=== PATIENT | female | born 1995 | race American Indian/Alaskan Native ===

== ENCOUNTER 2020-09-26 11:42 | Emergency (ER) | payer MEDICAID ==
[2020-09-26 11:50] VITALS: BP 115/67
[2020-09-26] MEDS ORDERED: HYDROcodone/ACETAMINOPHEN 5-325 MG TAB PO ONE (14:41)
--- NOTE | 2020-09-26 14:43 | Emergency Department Report ---
Abscess Boil HPI - HPI Chief Complaint: Skin/Abscess/Foreign Body Stated Complaint: ABSCESS Time Seen by Provider: 09/26/20 13:39 Duration: 2 Days Location: Other (Left labia majora) Severity: Moderate History: Yes Previous History, No Fever, No Pain, No Purulent Drainage, No Numbness, No Foreign Body, No Insect Bite HPI: The patient was evaluated in the emergency department for symptoms described in the history of present illness. He/she was evaluated in the context of the global COVID-19 pandemic, which necessitated consideration that the patient might be at risk for infection with the virus that causes COVID-19. Institutional protocols and algorithms that pertain to the evaluation of patients at risk for COVID-19 are in a state of rapid change based on information released by regulatory bodies including the CDC and federal and state organizations. These policies and algorithms were followed during the patient's care in the emergency department. Please note that these policies, procedures and recommendations changed on a rapid basis. 25-year-old - [place] female presents to the emergency room complaining of abscess on her left labia. Patient states that this is a second time she has had 1 in the last week. She had one on the right labia. Patient does shave. She denies any fever chills no nausea no vomiting. Home Medications: Previous Rx's Medication Instructions Recorded Last Taken Type Ibuprofen [Motrin 600 MG tab] 600 mg PO Q8H PRN #21 tablet 09/26/20 Unknown Rx cephALEXin [Keflex] 500 mg PO Q12HR 7 Days #14 cap 09/26/20 Unknown Rx ED Review of Systems ROS: Stated complaint: ABSCESS Other details as noted in HPI Comment: All other systems reviewed and negative ED Past Medical Hx - Past Medical History Previous Medical History?: No - Surgical History Past Surgical History?: No - Social History Smoking Status: Never Smoker Substance Use Type: None - Medications Home Medications: Home Medications Medication Instructions Recorded Confirmed Last Taken Type Ibuprofen [Motrin 600 MG tab] 600 mg PO Q8H PRN #21 tablet 09/26/20 Unknown Rx cephALEXin [Keflex] 500 mg PO Q12HR 7 Days #14 cap 09/26/20 Unknown Rx ED Abscess Boil Physical Exam - Exam General: Vital signs noted. No distress. Alert and acting appropriately. Size: 2 cm Exam: Yes Tenderness, Yes Fluctuance, Yes Surrounding Cellulites/Erythema, Yes Normal Neurologic Exam, Yes Normal Circulation, No Lymphangitis, No Crepitation, No Heart Murmur ED Course Vital Signs 09/26/20 11:48 Temperature 98 F Pulse Rate 62 Respiratory 16 Rate Blood Pressure 115/67 O2 Sat by Pulse 98 Oximetry Critical care attestation.: If time is entered above; I have spent that time in minutes in the direct care of this critically ill patient, excluding procedure time. ED Medical Decision Making - Medical Decision Making 25-year-old -[place] female presents to the emergency room complaining of abscess on her left labia. Patient states that this is a second time she has had 1 in the last week. She had one on the right labia. Patient does shave. She denies any fever chills no nausea no vomiting. Abscess labia majora left side. Incision and drain. Patient was placed on antibiotics pain medication and follow-up with her primary care provider. ED Disposition Clinical Impression: Abscess of labia majora Disposition: TO HOME OR SELFCARE Is pt being admited?: No Does the pt Need Aspirin: No Condition: Stable Instructions: Skin Abscess, [id number] Additional Instructions: Complete antibiotics take pain medication as needed. Prescriptions: cephALEXin [Keflex] 500 mg PO Q12HR 7 Days #14 cap Ibuprofen [Motrin 600 MG tab] 600 mg PO Q8H PRN #21 tablet PRN Reason: Pain Referrals: PRIMARY CARE, [Primary Care Provider] - 3-5 Days [facility] [Provider Group] - 3-5 Days Forms: Work/School Release Form(ED)
[2020-09-26] MEDS ORDERED: LIDOCAINE-MPF (1%) 10 MG/1 ML VIAL 5 ML ONE (14:45)
[2020-09-26] MEDS: LIDOCAINE-MPF (1%) 10 MG/1 ML VIAL 5 ML INFILTRATI ONE ×2 (14:57→14:58)
== END 2020-09-26 15:14 | disposition home or self-care (01) ==
LOC: ED 11:42
DX: N76.4 Abscess of vulva (principal); Z79.899 Other long term (current) drug therapy
CPT/HCPCS: 99282

== ENCOUNTER 2021-01-01 11:45 | Emergency (ER) | payer MEDICAID ==
[2021-01-01 12:10] VITALS: BP 112/50
--- NOTE | 2021-01-01 12:12 | Emergency Department Report ---
ED Abdominal Pain HPI - General Chief Complaint: Abdominal Pain Stated Complaint: ABD PAIN Time Seen by Provider: 01/01/21 12:01 Source: patient Mode of arrival: Ambulatory Limitations: No Limitations - History of Present Illness Initial Comments: Patient is a 25-year-old female presents emergency room complaints of left upper quadrant abdominal pain for 2 months. She states that she saw her primary care doctor and was diagnosed with hemorrhoids but did not take any of the medication. She has not been referred to a GI doctor. She denies any nausea or vomiting. She states that she intermittently has diarrhea. She states occasionally when she wipes she notices blood on the toilet paper, no hematochezia, melena, hematemesis. She denies any fever, urinary symptoms, abnormal vaginal discharge. No past medical history. No allergies to medica tions. - Related Data Previous Rx's Medication Instructions Recorded Last Taken Type Ibuprofen [Motrin 600 MG tab] 600 mg PO Q8H PRN #21 tablet 09/26/20 Unknown Rx cephALEXin [Keflex] 500 mg PO Q12HR 7 Days #14 cap 09/26/20 Unknown Rx Famotidine [Pepcid] 40 mg PO QHS #30 tablet 01/01/21 Unknown Rx Sucralfate [Carafate] 1 gm PO ACHS 7 Days #21 tablet 01/01/21 Unknown Rx Allergies Allergy/AdvReac Type Severity Reaction Status Date / Time No Known Allergies Allergy Unverified 09/26/20 14:51 ED Review of Systems ROS: Stated complaint: ABD PAIN Other details as noted in HPI Comment: All other systems reviewed and negative ED Past Medical Hx - Past Medical History Previous Medical History?: No - Surgical History Past Surgical History?: No - Social History Smoking Status: Never Smoker Substance Use Type: None - Medications Home Medications: Home Medications Medication Instructions Recorded Confirmed Last Taken Type Ibuprofen [Motrin 600 MG tab] 600 mg PO Q8H PRN #21 tablet 09/26/20 Unknown Rx cephALEXin [Keflex] 500 mg PO Q12HR 7 Days #14 cap 09/26/20 Unknown Rx Famotidine [Pepcid] 40 mg PO QHS #30 tablet 01/01/21 Unknown Rx Sucralfate [Carafate] 1 gm PO ACHS 7 Days #21 tablet 01/01/21 Unknown Rx ED Physical Exam - General Limitations: No Limitations General appearance: alert, in no apparent distress - Head Head exam: Present: atraumatic, normocephalic - Eye Eye exam: Present: normal appearance - ENT ENT exam: Present: mucous membranes moist - Respiratory Respiratory exam: Present: normal lung sounds bilaterally. Absent: respiratory distress, wheezes, rales, rhonchi, stridor, chest wall tenderness, accessory muscle use, decreased breath sounds, prolonged expiratory - Cardiovascular Cardiovascular Exam: Present: regular rate, normal rhythm, normal heart sounds. Absent: systolic murmur, diastolic murmur, rubs, gallop - GI/Abdominal GI/Abdominal exam: Present: soft, tenderness (mild LUQ), normal bowel sounds. Absent: distended, guarding, rebound, rigid - Neurological Exam Neurological exam: Present: alert, oriented X3 - Psychiatric Psychiatric exam: Present: normal affect, normal mood - Skin Skin exam: Present: warm, dry, intact ED Course Vital Signs 01/01/21 11:56 Temperature 98.0 F Pulse Rate 54 L Respiratory 16 Rate Blood Pressure 112/50 O2 Sat by Pulse 100 Oximetry ED Medical Decision Making - Lab Data Result diagrams: 01/01/21 12:08 01/01/21 12:08 - Medical Decision Making Patient is a 25-year-old female presents emergency room complaints of left upper quadrant abdominal pain for 2 months. She states that she saw her primary care doctor and was diagnosed with hemorrhoids but did not take any of the medication. She has not been referred to a GI doctor. She denies any nausea or vomiting. She states that she intermittently has diarrhea. She states occ asionally when she wipes she notices blood on the toilet paper, no hematochezia, melena, hematemesis. She denies any fever, urinary symptoms, abnormal vaginal discharge. No past medical history. No allergies to medications. Vitals are stable. On exam patient has mild left upper quadrant tenderness palpation, no guarding, no rebound, no rigidity, normal bowel sounds, no peritoneal signs. Labs with mild hypokalemia 3.3, repleted with K-Dur, otherwise labs are normal. UA within normal limits. Urine is negative. Symptoms likely related to GERD versus PUD versus gastritis. Do not suspect acute emergent intra- abdominal pathology at this time. Patient given prescription for Carafate and Pepcid. Patient will be referred to GI. Advised patient Please take medication as prescribed. Increase your water intake. Please follow the diet for GERD/gastritis. Follow-up with a GI doctor. Follow-up with your primary care doctor. Return to emergency room for any worsening symptoms. Critical care attestation.: If time is entered above; I have spent that time in minutes in the direct care of this critically ill patient, excluding procedure time. ED Disposition Clinical Impression: Hypokalemia Abdominal pain Qualifiers: Abdominal location: left upper quadrant Qualified Code(s): R10.12 - Left upper quadrant pain Disposition: DC- TO HOME OR SELFCARE Is pt being admited?: No Does the pt Need Aspirin: No Condition: Stable Instructions: Gastritis, Adult, [id number], Food Choices for Gastroesophageal Reflux Disease, Adult, Abdominal Pain (ED) Additional Instructions: Please take medication as prescribed. Increase your water intake. Please follow the diet for GERD/gastritis. Follow-up with a GI doctor. Follow-up with your primary care doctor. Return to emergency room for any worsening symptoms. Prescriptions: Famotidine [Pepcid] 40 mg PO QHS #30 tablet Sucralfate [Carafate] 1 gm PO ACHS 7 Days #21 tablet Referrals: [facility] [Provider Group] - 2-3 Days your, primary care doctor [Other] - 2-3 Days Forms: Work/School Release Form(ED) Time of Disposition: 13:42 Print Language: PRYDEINIG
[2021-01-01 12:34] LABS: Bilirubin,Urine NEG (Negative); Blood,Urine NEG (Negative); Color,Urine Yellow (Yellow); Mucus,Urine FEW /HPF; Protein,Urine <15 mg/dL mg/dL (Negative); Urobilinogen,Urine < 2.0 mg/dL (<2.0)
[2021-01-01 12:49] LABS: HCG Qualitative,Urine Negative (Negative)
[2021-01-01 13:07] LABS: Basophils % (Auto) 0.5 % (0.0-1.8); Eosinophils # (Auto) 0.4 K/mm3 (0.0-0.4); Eosinophils % (Auto) 7.8 % (0.0-4.3); Hematocrit 41.4 % (30.3-42.9); Hemoglobin 13.8 gm/dl (10.1-14.3); Lymphocytes # (Auto) 1.6 K/mm3 (1.2-5.4); Mean Corpuscular HGB Conc 33 % (30-34); Mean Corpuscular Volume 97 fl (79-97); Monocytes # (Auto) 0.3 K/mm3 (0.0-0.8); Monocytes % (Auto) 5.5 % (0.0-7.3); Platelet Count 142 K/mm3 (140-440); Red Blood Count 4.29 M/mm3 (3.65-5.03); Red Cell Distribution Width 13.9 % (13.2-15.2)
[2021-01-01 13:34] LABS: Alanine Aminotransferase 9 units/L (7-56); Albumin 4.4 g/dL (3.9-5); BUN/Creatinine Ratio 5; Blood Urea Nitrogen 5 mg/dL (7-17); Calcium 9.4 mg/dL (8.4-10.2); Hemolysis Index 4
[2021-01-01] MEDS ORDERED: POTASSIUM CHLORIDE ER 20 MEQ TAB PO ONE (13:41)
== END 2021-01-01 14:20 | disposition home or self-care (01) ==
LOC: ED 11:45
DX: E87.6 Hypokalemia (principal); R10.12 Left upper quadrant pain; Z79.1 Long term (current) use of non-steroidal anti-inflammatories (NSAID); Z79.899 Other long term (current) drug therapy
CPT/HCPCS: 36415; 80053; 81001; 81025; 83690; 85025